=== PATIENT | male | born 2000 | race Two or more races ===

== ENCOUNTER 2020-11-25 16:22 | Emergency (ER) | payer OTHER ==
[~2020-11-25] VITALS: Ht 175.3 cm; Wt 65.8 kg
[2020-11-25 16:27] VITALS: BP 116/78
--- NOTE | 2020-11-25 17:00 | NUR ---
Dr. Valdez is evaluating the patient at bedside.
--- NOTE | 2020-11-25 17:09 | NUR ---
20 YEAR OLD MALE COMPLAINS OF LEFT ARM AND HAND PAIN X YESTERDAY. PT STATES THAT HE ALSO HAS LEFT THIGH NUMBNESS SINCE YESTERDAY. PT STATES THAT HE HAD 2ND DOSE OF VACCINATION AND BELIEVE IT IS RELATED. PT STATES SOB AND CP WITH DEEP INSPIRATION. PT AOX4, BREATHING EVEN AND UNLABORED, SKIN WARM AND DRY. BED IN LOWEST POSITION, LOCKED, BED RAIL UPX1. PMH - DENIES ALLERGIES - NKA
--- NOTE | 2020-11-25 17:14 | NUR ---
REPORT GIVEN TO CORINA XAVIER, TRANSFER OF CARE AT THIS TIME
--- NOTE | 2020-11-25 17:15 | NUR ---
REPORT RECEIVED FROM DASH XAVIER, TRANSFER OF CARE AT THIS TIME.
--- NOTE | 2020-11-25 17:18 | NUR ---
PT RESTING IN BED WITH EVEN AND UNLABORED RESPIRATIONS. PT A/O X4 WITH NO SIGNS OF DISTRESS. WILL CONTINUE TO MONITOR.
--- NOTE | 2020-11-25 17:25 | NUR ---
LAB AT BEDSIDE FOR BLOOD DRAW
--- NOTE | 2020-11-25 17:26 | NUR ---
EMT AT BEDSIDE FOR EKG
--- NOTE | 2020-11-25 17:31 | NUR ---
technical communicator at bedside.
[2020-11-25 17:42] LABS: BASOPHILS # (AUTO) 0.2 K/uL (0.00-0.22); BASOPHILS % (AUTO) 3.7 % (0.0-2.0); EOSINOPHILS # (AUTO) 0.1 K/uL (0-0.4); EOSINOPHILS % (AUTO) 1.3 % (0.0-4.0); HEMATOCRIT 47.3 % (36-52); HEMOGLOBIN 15.8 g/dL (12.0-18.0); LYMPHOCYTES # (AUTO) 1.1 K/uL (2.0-11.5); LYMPHOCYTES % (AUTO) 17.7 % (20.5-51.1); MEAN CORPUSCULAR HEMOGLOBIN 29 pg (27-31); MEAN CORPUSCULAR HGB CONC 33 g/dL (33-37); MEAN CORPUSCULAR VOLUME 86.3 fL (80-94); MONOCYTES # (AUTO) 0.4 K/uL (0.8-1.0); MONOCYTES % (AUTO) 6.2 % (1.7-9.3); NEUTROPHILS # (AUTO) 4.3 K/uL (1.8-7.7); NEUTROPHILS % (AUTO) 71.1 % (42.2-75.2); PLATELET COUNT (AUTO) 341 K/uL (140-450); RED BLOOD CELL COUNT(AUTO) 5.48 MIL/uL (4.20-6.10); RED CELL DISTRIBUTION WIDTH 13.5 % (11.6-13.7); WHITE BLOOD COUNT (AUTO) 6.1 K/uL (4.8-10.8)
[2020-11-25 17:51] LABS: ANION GAP 13.3 (8-16); CARBON DIOXIDE 29.5 mmol/L (21-32); CREATININE 1.1 mg/dL (0.6-1.3); POTASSIUM 3.8 mmol/L (3.5-5.1)
[2020-11-25 17:57] LABS: ALBUMIN 4.4 g/dL (3.4-5.0); TOTAL BILIRUBIN 0.5 mg/dL (0.0-1.0)
[2020-11-25 18:19] LABS: CREATINE KINASE MB 0.2 ng/mL (0-3.6)
--- NOTE | 2020-11-25 18:45 | NUR ---
PT SITTING IN BED WITH EVEN AND UNLABORED RESPIRATIONS. WILL CONTINUE TO MONITOR
--- NOTE | 2020-11-25 19:10 | NUR ---
REPORT GIVEN TO ROBERTH XAVIER. TRANSFER OF CARE AT THIS TIME.
--- NOTE | 2020-11-25 19:10 | NUR ---
Report received from MORENITA Shaikh for continuation of care.
--- NOTE | 2020-11-25 19:30 | NUR ---
Patient sitting in bed, breathing even and unlabored, denies SOB, denies current chest pain, denies current arm pain. Cap refill <3sec, radial pulses +2 bilaterally.
[2020-11-25 19:53] LABS: APPEARANCE,URINE CLEAR (CLEAR); BILIRUBIN,URINE NEGATIVE (NEGATIVE); BLOOD, URINE NEGATIVE (NEGATIVE); LEUKOCYTE ESTERASE ,URINE NEGATIVE (NEGATIVE); NITRITE, URINE NEGATIVE (NEGATIVE); UGLUCOSE NEGATIVE (NEGATIVE)
[2020-11-25 19:55] LABS: COLOR,URINE STRAW (YELLOW)
[2020-11-25 20:08] LABS: BARBITURATE, URINE NEGATIVE ng/ml (NEG <=200); BENZODIAZEPINE, URINE NEGATIVE ng/mL (NEG <=200); CANNABINOID, URINE NEGATIVE ng/mL (NEG <=50); COCAINE, URINE NEGATIVE ng/mL (NEG <=300); OPIATE, URINE NEGATIVE ng/mL (NEG <=2000); PHENCYCLIDINE SCREEN,URINE NEGATIVE ng/mL (NEG <=25)
[2020-11-25 20:15] VITALS: BP 121/82
--- NOTE | 2020-11-25 20:15 | NUR ---
Patient discharged with v/s stable. Written and verbal after care instructions given and explained. Patient verbalized understanding. Ambulatory with steady gait. All questions addressed prior to discharge. Advised to follow up with PMD.
== END 2020-11-25 20:15 | disposition home or self-care (01) ==
LOC: MED 16:22
DX: R07.2 Precordial pain (principal); R20.2 Paresthesia of skin
CPT/HCPCS: 36415; 71045; 80053; 80305; 81003; 82550; 82553; 84484; 85025; 93005; 99285